=== PATIENT | male | born 1980 | race Two or more races ===

== ENCOUNTER 2017-09-23 15:55 | Emergency (ER) | payer OTHER ==
[2017-09-23 16:02] VITALS: BP 129/90
[2017-09-23] MEDS ORDERED: LORazepam 2 MG/ML INJ IVP ONE (16:12)
--- NOTE | 2017-09-23 16:12 | EDPHY ---
General Time Seen by Provider: 09/23/17 16:03 Narrative: CHIEF COMPLAINT: Withdrawing from Suboxone HISTORY OF PRESENT ILLNESS: Patient presents with complaints of withdrawing from Suboxone. He says he ran out of Suboxone yesterday. He has been taking this for 4-5 months, when he states he has been sober from heroin. He was in the hospital recently for psychiatric evaluation, discharged home yesterday run out of his Suboxone. He has no thoughts of self-harm or harm towards others. He is here because he is feeling shaky and feels "withdrawal symptoms."No chest pain. No headache. No vomiting but some nausea. No fever. He denies any other drug use. Denies alcohol use. He is not asking for narcotics only help with symptoms. He has an appointment tomorrow with his primary care physician to resume Suboxone. He also has prescriptions from the hospital yesterday that he will fill for his ongoing medications. REVIEW OF SYSTEMS: Ten systems reviewed and are negative unless otherwise noted in the HPI PCP: [facility] SPECIALISTS: The psychotherapist PAST MEDICAL HISTORY: Depression, bipolar, previous heroin abuse PAST SURGICAL HISTORY: No recent surgeries SOCIAL HISTORY: Daily smoker. Denies any alcohol use. Previous heroin use her reportedly clean for 4-5 months on Suboxone FAMILY HISTORY: Noncontributory EXAMINATION General Appearance: Alert, no distress. Well-developed well-nourished. Head: normocephalic, atraumatic Eyes: Pupils equal and round, no conjunctival pallor or injection ENT, Mouth: Mucous membranes moist Neck: Normal inspection, supple, non-tender Respiratory: Lungs are clear to auscultation Cardiovascular: Regular rate and rhythm Gastrointestinal: Abdomen is soft and nontender Back: non-tender, no bony abnormalities Neurological: GCS 15 A&O, nonfocal, normal gait. No tremor Skin: Warm and dry, no rash Extremities: Nontender, no pedal edema Psychiatric: Anxious mood and affect. Cooperative and denies suicidal ideation or homicidal ideation. DIFFERENTIAL DIAGNOSES: Including but not limited to Suboxone withdrawal, dehydration, bipolar disorder , depression, SI, MDM: 4:05 p.m. Reported withdrawal from Suboxone over the last 24 hr. He has no chest pain but is feeling very shaky. He is not requesting opiates. He is just requesting assistance with the symptoms. I have ordered IV Ativan 1 dose of p.o. Clonidine. Vital signs are within normal limits with very mild tachycardia. The patient is also asking for help with transportation to see his therapist in [place]. I will discuss with case management. 4:15 p.m. Case discussed with case management and she will help assist with a regional bus pass. 4:20 p.m. Patient re-evaluated. He has paper scripts for Seroquel, Lamictal, Wellbutrin and lithium. He has no benzodiazepines and is not asking for any. He has no opiate description is not asking for any. He is awake alert no acute distress. Mentating appropriately. He is only requesting assistance getting to his therapist in [place] asking for a dose of something with his symptoms. He will receive 1 dose of Ativan clonidine here be discharged stable condition. We discussed ED precautions should his symptoms worsen later today and he agrees to comply with this. SUPERVISION: Patient was independently examined, but I discussed the case with my secondary supervising physician Dr. Nettles - History Smoking Status: Current every day smoker - Objective Vital Signs: Initial Vital Signs Temperature (C) 98.6 F 09/23/17 15:59 Heart Rate 104 H 09/23/17 15:59 Respiratory Rate 20 09/23/17 15:59 Blood Pressure 129/90 H 09/23/17 15:59 O2 Sat (%) 93 09/23/17 15:59 O2 Delivery Mode Room Air Allergies/Adverse Reactions: No Known Allergies Allergy (Unverified 10/03/14 01:04) Home Medications: Medication Instructions Recorded Depakote 10/03/14 Wellbutrin Xl 10/03/14 Xanax 10/03/14 Medications Given: Discontinued Medications Clonidine (Catapres) 0.1 mg PO EDNOW ONE Stop: 09/23/17 16:13 Last Admin: 09/23/17 16:30 Dose: 0.1 mg Lorazepam (Ativan Injection) 1 mg IVP EDNOW ONE Stop: 09/23/17 16:13 Last Admin: 09/23/17 16:30 Dose: 1 mg Departure - Departure Disposition: Home, Routine, Self-Care Clinical Impression: Opiate dependence Qualifiers: Substance use status: uncomplicated Qualified Code(s): F11.20 - Opioid dependence, uncomplicated Condition: Good Instructions: Opioid Dependence (ED), Opioid Withdrawal (ED) Additional Instructions: 1. Proceed directly to to your appointment with your therapist in [place] by the bus pass that we provided 2. Keep your appointment with your primary care physician tomorrow morning to resume your Suboxone 3. Return here for any worsening symptoms, chest pain, headache, confusion, nausea vomiting, seizure activity Referrals: [facility] [Outside] - As per Instructions Divya Denis MD [Medical Doctor] - As per Instructions
== END 2017-09-23 16:34 | disposition home or self-care (01) ==
LOC: EDBD → EDUNIT#
DX: F11.20 Opioid dependence, uncomplicated (principal); F17.200 Nicotine dependence, unspecified, uncomplicated
CPT/HCPCS: 96374; J2060